=== PATIENT | male | born 1975 | race Caucasian/White ===

== ENCOUNTER 2019-07-06 09:16 | Emergency (ER) | payer OTHER ==
[~2019-07-06] VITALS: Ht 185.4 cm; Wt 102.1 kg
[2019-07-06 09:22] VITALS: Ht 185.4 cm; Wt 102.1 kg
[2019-07-06 11:24] LABS: BASOPHILS 0.6 % (0-2); HEMATOCRIT 41.9 % (42.0-54.0); IMMATURE GRANULOCYTES 0.2 % (0-5); MCH 29.9 pg (26.0-34.0); MCHC 35.8 g/dL (31.0-37.0); MCV 83.5 fL (80.0-100.0); MEAN PLATELET VOLUME 10.1 fL (7.4-10.4); MONOCYTES 5.9 % (2-11); NEUTROPHILS 44.3 % (40-80); PLATELET COUNT 184 10x3/uL (130-400); RBC 5.02 10x6/uL (4.20-6.10); RDW 12.9 % (11.5-14.5); WBC 4.7 10x3/uL (4.8-10.8)
[2019-07-06 11:36] LABS: ALBUMIN 4.2 g/dL (3.4-5.0); ALKALINE PHOSPHATASE 70 U/L (46-116); ALT (SGPT) 37 U/L (10-68); BILIRUBIN - TOTAL 0.54 mg/dL (0.2-1.3); CALC OSMOLALITY 277 mosm/kg (275-300); CARBON DIOXIDE 26.3 mmol/L (21.0-32.0); CHLORIDE - SERUM 103 mmol/L (98-107); CREATININE - SERUM 1.1 mg/dL (0.6-1.3); GLUCOSE 96 mg/dL (74-106); POTASSIUM - SERUM 3.9 mmol/L (3.5-5.1); PROTEIN - SERUM 7.3 g/dL (6.4-8.2); SODIUM 138 mmol/L (136-145); UREA NITROGEN 18 mg/dL (7-18); eGFR NON AFRICAN AMERICAN 78 mL/min (90-120)
[2019-07-06 11:53] LABS: TROPONIN-I < 0.017 ng/mL (0.000-0.060)
[2019-07-06 11:56] LABS: CKMB 2.4 U/L (0.0-3.6); CREATINE KINASE 1400 UL (21-232)
[2019-07-06 14:34] VITALS: BP 125/71
== END 2019-07-06 14:36 | disposition home or self-care (01) ==
LOC: D.ER 09:16
PROVIDERS: Emergency Medicine
DX: M25.512 Pain in left shoulder (principal)